=== PATIENT | female | born 1975 | race Caucasian/White ===

== ENCOUNTER 2016-06-22 20:51 | Emergency (ER) | payer BC ==
[2016-06-22] MEDS ORDERED: ASPIRIN 81 MG CHEW TAB ONE (21:13)
[2016-06-22] MEDS ORDERED: KETOROLAC 30 MG/ML VIAL ONE (21:14)
== END 2016-06-23 00:41 | disposition home or self-care (01) ==
LOC: ER 20:51
CPT/HCPCS: 71010; 93005; 96374